=== PATIENT | female | born 1950 | race Caucasian/White ===

== ENCOUNTER 2017-07-15 09:21 | Outpatient (CLI) | payer MEDICARE | END 2017-07-15 09:22 | disposition home or self-care (01) | LOC: BICMAMMO 09:21 | PROVIDERS: ATTEND Internal Medicine | DX: Z12.31 Encounter for screening mammogram for malignant neoplasm of breast (principal); R92.1 Mammographic calcification found on diagnostic imaging of breast; Z80.3 Family history of malignant neoplasm of breast | CPT/HCPCS: 77063; 77067 ==

== ENCOUNTER 2018-07-19 10:20 | Outpatient (CLI) | payer MEDICARE, OTHER ==
--- NOTE | 2018-07-19 11:09 | MMO ---
Bilateral MAMMO Bilat Screen [facility]. CLINICAL HISTORY: Patient is 68 years old and is seen for screening. The patient has the following family history of breast cancer: maternal grandmother, malignant (generic) and maternal grandmother, malignant (generic), GREAT. The patient has no personal history of cancer. The patient has a history of bilateral Implants in 1990. VIEWS: The views performed were: bilateral craniocaudal with tomosynthesis; bilateral mediolateral oblique with tomosynthesis; and bilateral Implant displaced. FILMS COMPARED: The present examination has been compared to prior imaging studies performed at [facility] on 04/25/2015, 07/09/2016 and 07/15/2017, and at [facility] on 10/03/2012. MAMMOGRAM FINDINGS: There are scattered fibroglandular densities. Finding 1: There are stable benign appearing calcifications seen in both breasts. Finding 2: There are stable calcified implants seen in both breasts. There are no suspicious masses, suspicious calcifications, or new areas of architectural distortion. IMPRESSION: THERE IS NO MAMMOGRAPHIC EVIDENCE OF MALIGNANCY. A ROUTINE FOLLOW-UP MAMMOGRAM IN 1 YEAR IS RECOMMENDED. THE RESULTS OF THIS EXAM WERE SENT TO THE PATIENT. ACR BI-RADS Category 2 - Benign finding MAMMOGRAPHY NOTE: 1. A negative mammogram report should not delay a biopsy if a dominant of clinically suspicious mass is present. 2. Approximately 10% to 15% of breast cancers are not detected by mammography. 3. Adenosis and dense breasts may obscure an underlying neoplasm.
== END 2018-07-19 10:21 | disposition home or self-care (01) ==
LOC: BICMAMMO 10:20
PROVIDERS: ATTEND Internal Medicine
DX: Z12.31 Encounter for screening mammogram for malignant neoplasm of breast (principal); Z98.82 Breast implant status
CPT/HCPCS: 77063; 77067

== ENCOUNTER 2019-07-30 13:21 | Outpatient (CLI) | payer MEDICARE, OTHER ==
--- NOTE | 2019-07-30 14:13 | MMO ---
Bilateral MAMMO Bilat Screen [facility]. CLINICAL HISTORY: Patient is 69 years old and is seen for screening. The patient has the following family history of breast cancer: maternal grandmother, malignant (generic) and maternal grandmother, malignant (generic), GREAT. The patient has no personal history of cancer. The patient has a history of bilateral Implants in 1990. VIEWS: The views performed were: bilateral craniocaudal with tomosynthesis and bilateral mediolateral oblique with tomosynthesis. FILMS COMPARED: The present examination has been compared to prior imaging studies performed at [facility] on 04/25/2015, 07/09/2016, 07/15/2017 and 07/19/2018. This study has been interpreted with the assistance of computer-aided detection. MAMMOGRAM FINDINGS: There are scattered fibroglandular densities. Benign calcifications are noted bilaterally. Bilateral implants are stable. There are no suspicious masses, suspicious calcifications, or new areas of architectural distortion. IMPRESSION: THERE IS NO MAMMOGRAPHIC EVIDENCE OF MALIGNANCY. A ROUTINE FOLLOW-UP MAMMOGRAM IN 1 YEAR IS RECOMMENDED. THE RESULTS OF THIS EXAM WERE SENT TO THE PATIENT. ACR BI-RADS Category 2 - Benign finding MAMMOGRAPHY NOTE: 1. A negative mammogram report should not delay a biopsy if a dominant of clinically suspicious mass is present. 2. Approximately 10% to 15% of breast cancers are not detected by mammography. 3. Adenosis and dense breasts may obscure an underlying neoplasm. Reported by: TAMMIE RITCHIE MD Electonically Signed: [id number]
== END 2019-07-30 13:22 | disposition home or self-care (01) ==
LOC: BICMAMMO 13:21
PROVIDERS: ATTEND Internal Medicine
DX: Z12.31 Encounter for screening mammogram for malignant neoplasm of breast (principal); Z98.82 Breast implant status; Z80.3 Family history of malignant neoplasm of breast
CPT/HCPCS: 77063; 77067

== ENCOUNTER 2019-10-03 09:02 | Emergency (ER) | payer MEDICARE ==
[2019-10-03 09:33] LABS: #Eosinphils 0.1 thou/uL (0.0-0.7); #Monocytes 0.8 thou/uL (0.11-0.59); #Neutrophils 8.9 thou/uL (1.40-6.50); %Basophils 0.3 % (0.0-1.0); %Eosinophils 1.2 % (0.0-10.0); %Lymphocytes 17.2 % (21.0-51.0); %Monocytes 6.3 % (0.0-10.0); %Neutrophils 75.1 % (42.0-75.0); Hemoglobin 14.8 g/dL (12.0-16.0); Mean Corpuscular HGB CONC 33.4 g/dL (32.0-36.0); Mean Corpuscular Hemoglobin 30.8 pg (27.0-31.0); Mean Corpuscular Volume 92.1 fL (78.0-98.0); Mean Platelet Volume 7.7 fL (7.4-10.4); Platelet Count 179 thou/uL (130-400); RBC Distribution Width 11.7 % (11.5-14.5); Red Blood Cell (RBC) Count 4.81 mill/uL (4.20-5.40); White Blood Cell (WBC) Count 11.8 thou/uL (4.8-10.8)
[2019-10-03 09:35] LABS: INR-International Normal Ratio 0.9; PTT 25.5 sec (22.9-36.1); Prothrombin Time 12.5 sec (12.0-14.7)
[2019-10-03] MEDS ORDERED: CEFAZOLIN 1 GM VIAL ONE (09:40)
[2019-10-03] MEDS ORDERED: Adacel (T-DAP) 0.5 ML SYRINGE ONE (09:41)
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
[2019-10-03 10:22] LABS: ALT (SGPT) 24 U/L (8-55); AST (SGOT) 23 U/L (5-34); Albumin 3.9 g/dL (3.4-4.8); Alkaline Phosphatase 79 U/L (40-110); Anion Gap 12 mmol/L (10-20); BUN (Urea Nitrogen) 18 mg/dL (9.8-20.1); Bilirubin, Total 0.5 mg/dL (0.2-1.2); Calc. Creatinine Clearance 0 mL/min (70-130); Calcium 9.1 mg/dL (7.8-10.44); Carbon Dioxide 24 mmol/L (23-31); Chloride 108 mmol/L (98-107); Estimated GFR-MDRD 64; Globulin 2.6 g/dL (2.4-3.5); Glucose 102 mg/dL (80-115); Potassium 4.1 mmol/L (3.5-5.1); Protein, Total 6.5 g/dL (6.0-8.3); Sodium 140 mmol/L (136-145)
[2019-10-03] MEDS ORDERED: Ketorolac Tromethamine 30 MG/ML VIAL ONE (10:25)
[2019-10-03] MEDS ORDERED: Lidocaine 1% w/Epinephrine 1:100K 20 ML VIAL ONE (10:26)
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
[2019-10-03] MEDS ORDERED: Bacitracin 1 PK ONE (10:52)
[2019-10-03 14:14] LABS: Bilirubin Negative (Negative); Blood, Urine Negative (Negative); Clarity Clear (Clear); Glucose, Urine (Dipstick) Normal (Negative); Ketone, Urine Negative (Negative); Leukocyte Negative Leu/uL (Negative); Nitrite Negative (Negative); Protein, Urine (Dipstick) Negative (Neg-Trace); Specific Gravity, Urine 1.023 (1.002-1.036); Urobilinogen Normal mg/dL (Less than 2); pH, Urine 7.5 (5.0-9.0)
[2019-10-03] MEDS ORDERED: Iopamidol-370 76% 500 ML 1 ML ONE (15:14)
== END 2019-10-03 11:50 | disposition home or self-care (01) ==
LOC: ERS 09:02
DX: S50.312A Abrasion of left elbow, initial encounter (principal); S60.512A Abrasion of left hand, initial encounter; S90.811A Abrasion, right foot, initial encounter; S20.311A Abrasion of right front wall of thorax, initial encounter; Z79.899 Other long term (current) drug therapy; V49.9XXA Car occupant (driver) (passenger) injured in unspecified traffic accident, initial encounter
CPT/HCPCS: 70450; 71260; 72125; 74177; 80053; 81003; 85025; 85610; 85730; 90471; 90715; 93005; 96365; G0390; J0690; J1885; Q9967

== ENCOUNTER 2020-02-11 12:32 | Observation (INO) | payer MEDICARE ==
[2020-02-11 13:11] LABS: Bilirubin Negative (Negative); Blood, Urine Negative (Negative); Clarity Clear (Clear); Glucose, Urine (Dipstick) Normal (Negative); Ketone, Urine Negative (Negative); Leukocyte Negative Leu/uL (Negative); Nitrite Negative (Negative); Protein, Urine (Dipstick) Negative (Neg-Trace); Specific Gravity, Urine 1.004 (1.002-1.036); Urobilinogen Normal mg/dL (Less than 2); pH, Urine 6.5 (5.0-9.0)
[2020-02-11 13:26] LABS: #Basophils 0.1 thou/uL (0.0-0.2); #Eosinphils 0.1 thou/uL (0.0-0.7); #Lymphocytes 1.9 thou/uL (1.20-3.40); #Monocytes 0.8 thou/uL (0.11-0.59); #Neutrophils 9.5 thou/uL (1.40-6.50); %Basophils 0.5 % (0.0-1.0); %Eosinophils 0.4 % (0.0-10.0); %Lymphocytes 15.6 % (21.0-51.0); %Monocytes 6.6 % (0.0-10.0); %Neutrophils 76.9 % (42.0-75.0); Hemoglobin 14.8 g/dL (12.0-16.0); Mean Corpuscular HGB CONC 33.2 g/dL (32.0-36.0); Mean Corpuscular Hemoglobin 29.7 pg (27.0-31.0); Mean Corpuscular Volume 89.5 fL (78.0-98.0); Mean Platelet Volume 7.5 fL (7.4-10.4); Platelet Count 225 thou/uL (130-400); White Blood Cell (WBC) Count 12.4 thou/uL (4.8-10.8)
[2020-02-11 13:40] LABS: ALT (SGPT) 33 U/L (8-55); AST (SGOT) 27 U/L (5-34); Albumin 4.1 g/dL (3.4-4.8); Alkaline Phosphatase 89 U/L (40-110); Anion Gap 14 mmol/L (10-20); BUN (Urea Nitrogen) 17 mg/dL (9.8-20.1); Bilirubin, Total 0.4 mg/dL (0.2-1.2); Calc. Creatinine Clearance 0 mL/min (70-130); Calcium 9.6 mg/dL (7.8-10.44); Carbon Dioxide 24 mmol/L (23-31); Chloride 107 mmol/L (98-107); Globulin 2.9 g/dL (2.4-3.5); Glucose 95 mg/dL (80-115); Lipase 29 U/L (8-78); Potassium 4.2 mmol/L (3.5-5.1); Sodium 141 mmol/L (136-145)
--- NOTE | 2020-02-11 13:56 | RAD ---
EXAM: CHEST ONE VIEW HISTORY: Dizziness, shortness of breath, chest tightness. COMPARISON: 09/14/2013 FINDINGS: The cardiac silhouette and pulmonary vasculature are within normal limits. The lungs are clear. Calci fied bilateral breast prostheses are again seen. Vascular calcifications are seen in the thoracic aorta. Postoperative changes right shoulder are seen. No other interval change. IMPRESSION: No acute cardiopulmonary process.
--- NOTE | 2020-02-11 14:15 | CT ---
CT BRAIN WITHOUT CONTRAST: HISTORY: Dizziness COMPARISON: 10/03/2019 FINDINGS: No evidence of acute infarct, hemorrhage, midline shift or abnormal extra-axial fluid collections is seen. The ventricular size is appropriate and the basilar cisterns are patent. The bony calvarium is intact. The visualized paranasal sinuses and mastoid air cells are well aerated. IMPRESSION: No CT evidence of acute intracranial process.
[2020-02-11] MEDS ORDERED: Acetaminophen 650 MG Suppository PR PRN (17:44)
[2020-02-11] MEDS ORDERED: Acetaminophen 325 MG TAB PO PRN (17:44)
[2020-02-11 18:23] LABS: CKMB 1.1 ng/mL (0-6.6); Troponin I Less than 0.010 ng/mL (< 0.028)
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
[2020-02-11] MEDS ORDERED: Famotidine 20 MG TAB ONE (22:09)
[2020-02-11] MEDS: Famotidine 20 MG TAB PO SCH (22:13)
[2020-02-12] MEDS: Levothyroxine Sodium 50 MCG TAB PO SCH (06:25)
[2020-02-12 06:36] LABS: #Eosinphils 0.1 thou/uL (0.0-0.7); #Lymphocytes 2.4 thou/uL (1.20-3.40); #Monocytes 0.7 thou/uL (0.11-0.59); #Neutrophils 6.2 thou/uL (1.40-6.50); %Basophils 0.2 % (0.0-1.0); %Eosinophils 1.3 % (0.0-10.0); %Lymphocytes 25.4 % (21.0-51.0); %Monocytes 7.8 % (0.0-10.0); %Neutrophils 65.4 % (42.0-75.0); Hemoglobin 13.9 g/dL (12.0-16.0); Mean Corpuscular HGB CONC 33.5 g/dL (32.0-36.0); Mean Corpuscular Hemoglobin 30.5 pg (27.0-31.0); Mean Platelet Volume 7.6 fL (7.4-10.4); Platelet Count 210 thou/uL (130-400); Red Blood Cell (RBC) Count 4.57 mill/uL (4.20-5.40); White Blood Cell (WBC) Count 9.5 thou/uL (4.8-10.8)
[2020-02-12 06:59] LABS: Anion Gap 14 mmol/L (10-20); BUN (Urea Nitrogen) 20 mg/dL (9.8-20.1); Calc. Creatinine Clearance 0 mL/min (70-130); Carbon Dioxide 25 mmol/L (23-31); Chloride 109 mmol/L (98-107); Glucose 84 mg/dL (80-115); Potassium 4.2 mmol/L (3.5-5.1); Sodium 144 mmol/L (136-145)
[2020-02-12] MEDS ORDERED: Enoxaparin Sodium 40 MG/0.4 ML SYRINGE ONE (09:48)
[2020-02-12] MEDS ORDERED: Famotidine 20 MG TAB ONE (09:48)
[2020-02-12] MEDS: Famotidine 20 MG TAB PO SCH ×2 (09:51→20:31)
[2020-02-12] MEDS: Enoxaparin Sodium 40 MG/0.4 ML SYRINGE SC SCH (09:51)
[2020-02-12 12:26] LABS: SARS-CoV-2 MS2 Positive; SARS-CoV-2 N Gene Negative; SARS-CoV-2 S Gene Negative; SARS-CoV-2 by NAA Not Detected (NotDetected); SARS-CoV-2 orf1ab Negative
[2020-02-12 13:22] VITALS: BMI 29.6
[2020-02-12] MEDS ORDERED: Amlodipine 5 MG TAB PO SCH (14:30)
--- NOTE | 2020-02-12 16:46 | PDOC.HOSPP ---
- Subjective Encounter Date: 02/12/20 Subjective: Feeling a little better in general. She was watching her monitor in the emergency department and noted that she was having PVCs with 3 different foci. She believes that she was actually having several in a row which were significant enough to cause her to have momentary lightheadedness before coming to the hospital. She reports that she has seen Dr. Schwarz in 2013. At that time she underwent cardiac evaluation including stress test. She was subsequently started on bisoprolol. She says her blood pressure is typically not been a serious problem but was elevated associated with this particular episode. [place] worried about what will happen if her symptoms recur. - Objective Vital Signs & Weight: Vital Signs (12 hours) Temp Pulse Resp BP BP BP Pulse Ox 02/12/20 15:05 98.1 F 64 16 138/60 94 L 02/12/20 14:26 65 157/67 H 02/12/20 13:05 97.9 F 61 17 166/74 H 99 Weight Weight 178 lb Result Diagrams: 02/12/20 06:19 02/12/20 06:18 Hospitalist ROS - Medication Medications: Active Medications Generic Name Dose Route Start Last Admin Trade Name Freq PRN Reason Stop Dose Admin Enoxaparin Sodium 40 mg 02/12/20 09:00 02/12/20 09:51 Enoxaparin Sodium 40 Mg/0.4 Ml Syringe SC 40 mg 0900 PHYLLIS Administration Famotidine 20 mg 02/11/20 21:00 02/12/20 09:51 Famotidine 20 Mg Tab PO Not Given BID PHYLLIS Levothyroxine Sodium 50 mcg 02/12/20 06:00 02/12/20 06:25 Levothyroxine Sodium 50 Mcg Tab PO 50 mcg 0600 PHYLLIS Administration - Exam General Appearance: NAD, awake alert Heart: RRR, no murmur, no gallops, no rubs, normal peripheral pulses Respiratory: CTAB, no wheezes, no rales, no ronchi, normal chest expansion, no tachypnea, normal percussion Gastrointestinal: soft, non-tender, non-distended, normal bowel sounds, no palpable masses, no hepatomegaly, no splenomegaly, no bruit Extremities: no cyanosis, no clubbing, no edema Skin: normal turgor, no lesions, no rashes Neurological: no focal deficits Musculoskeletal: normal tone, normal strength, no muscle wasting Psychiatric: normal affect, normal behavior, A&O x 3 Hosp A/P (1) Elevated BP without diagnosis of hypertension Code(s): R03.0 - ELEVATED BLOOD-PRESSURE READING, W/O DIAGNOSIS OF HTN Status: Acute (2) Heart palpitations Code(s): R00.2 - PALPITATIONS Status: Acute (3) Lightheadedness Code(s): R42 - DIZZINESS AND GIDDINESS Status: Acute (4) Hx of labyrinthitis Code(s): Z86.69 - PERSONAL HISTORY OF DIS OF THE NERVOUS SYS AND SENSE ORGANS Status: Chronic (5) Hypothyroidism Code(s): E03.9 - HYPOTHYROIDISM, UNSPECIFIED Status: Chronic - Plan Thus far the patient's evaluation has essentially been unremarkable. Her labs are normal including her troponins. She has not had any major findings on her telemetry monitoring although she has been in the emergency department in little of this is been captured for the chart. Echocardiogram was ordered however delayed because the patient was holding over in the emergency department. I long discussion with the patient. At this point we will move forward with the echocardiogram and order stress testing. Should these be unremarkable she can discharge and follow-up with Dr. Schwarz to consider possible outpatient cardiac monitoring.
[2020-02-13] MEDS: Levothyroxine Sodium 50 MCG TAB PO SCH (05:46)
[2020-02-13] MEDS: Enoxaparin Sodium 40 MG/0.4 ML SYRINGE SC SCH (11:01)
[2020-02-13] MEDS: Famotidine 20 MG TAB PO SCH (11:01)
[2020-02-13 12:12] VITALS: BP 137/63; TEMP 98.1
--- NOTE | 2020-02-13 12:18 | NM ---
CARDIAC SPECT: CLINICAL HISTORY: 69-year-old female with chest pain, palpitations. TECHNIQUE: A myocardial perfusion scan was performed using the single isotope one day protocol with technetium-9 9m sestamibi. 10 mCi were injected intravenously for the rest exam followed by 32 mCi for the stress exam. Exercise stress was monitored and interpreted by Dr. Doran. FINDINGS: Homogeneous tracer distribution is seen in the myocardial segments on stress and rest images without fixed or reversible defects. GATED SPECT LVEF: 83%. WALL MOTION EXAM: Normal. IMPRESSION: Normal myocardial perfusion scan. POS: AH
--- NOTE | 2020-02-13 22:21 | PDOC.DS.DS ---
Provider - Provider Date of Admission: 02/11/20 16:13 Date of Discharge: 02/13/20 Admitting Provider: Ugo Brooks DO Consultations: None Primary Care Physician: Israel Owen MD Course - Hospital Course Hospital Course: Patient is a 69-year-old female with hypothyroidism and coronary artery spasms in the past presented to the emergency room with lightheadedness along with palpitations. Please refer to the history and physical for further details The patient was admitted to the hospital with the above diagnosis. She was monitored on telemetry. Chest x-ray was negative for acute process. CT scan of the brain without contrast was negative. Telemetry monitoring was negative for significant arrhythmias. A D-dimer was negative. Bisoprolol was continued. She underwent Cardiolite stress test that was negative for reversible ischemia. Echocardiogram showed ejection fraction 60 to 65% with mild mitral regurgitation and mild tricuspid regurgitation. Patient will follow up with Dr. Schwarz later today for an event monitor. Final diagnosis: Palpitations with lightheadedness of unclear etiology PVCs Elevated blood pressure without diagnosis of hypertension Hypothyroidism History of labyrinthitis CKD stage II Resuscitation Status: 02/11/20 17:44 Resuscitation Status Routine Co-Sign Provider: Resuscitation Status: FULL: Full Resuscitation - Labs Lab Results: 02/12/20 06:19 02/12/20 06:18 Abnormal Lab Results - Last 48 hrs 02/12/20 06:18: Chloride 109 H 02/12/20 06:19: Monocytes # 0.7 H - Physical Exam Vitals: Vital Signs (12 hours) Temp Pulse Resp BP Pulse Ox 02/13/20 12:00 98.1 F 62 16 137/63 94 L Weight Weight 175 lb 6.4 oz Physical Exam: The patient was seen and examined on the day of discharge. Plan - Discharge Medications Prescriptions: Amlodipine Besylate [amLODIPine Besylate] 2.5 mg PO DAILY PRN #20 tablet PRN Reason: Sbp Greater Than 160 Home Medications: Medication Instructions Recorded Confirmed Type Azelastine [Azelastine 137 mcg 1 spray NASAL DAILY PRN 02/12/20 02/12/20 History (0.1%) Nasal [place]] Bisoprolol Fumarate [Zebeta] 5 mg PO DAILY 02/12/20 02/12/20 History Levothyroxine Sodium 50 mcg PO DAILY 12/15/20 12/15/20 History [Levothyroxine] valACYclovir HCl [Valacyclovir] 500 mg PO BID PRN 02/12/20 02/12/20 History Amlodipine Besylate [amLODIPine 2.5 mg PO DAILY PRN #20 tablet 02/13/20 Rx Besylate] Allergies: codeine Allergy (Verified 02/12/20 13:14) - Follow up Plan Referrals: Robinson Schwarz MD [Affiliate] - 02/13/20 4:00 pm (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
--- NOTE | 2020-02-16 15:21 | EKG ---
Test Reason : Blood Pressure : / mmHG Vent. Rate : 061 BPM Atrial Rate : 061 BPM P-R Int : 146 ms QRS Dur : 092 ms QT Int : 414 ms P-R-T Axes : 060 033 021 degrees QTc Int : 416 ms Normal sinus rhythm Cannot rule out Anterior infarct , age undetermined Abnormal ECG Confirmed by REJI MONTANA DO ([id number]), editor continuity and script JESSE BRAGA ([id number]) on 02/16/2020 3:20:34 PM Referred By: Confirmed By:REJI MONTANA DO
== END 2020-02-13 14:53 | disposition home or self-care (01) ==
LOC: ERS 12:32 → ERHOLD 16:13 → 2NO 02-12 13:00
PROVIDERS: ADMIT Family Medicine; ATTEND Internal Medicine
DX: R00.2 Palpitations (principal); R42 Dizziness and giddiness; E03.9 Hypothyroidism, unspecified; R03.0 Elevated blood-pressure reading, without diagnosis of hypertension; I49.3 Ventricular premature depolarization; N18.2 Chronic kidney disease, stage 2 (mild); Z79.899 Other long term (current) drug therapy; Z88.5 Allergy status to narcotic agent; Z86.69 Personal history of other diseases of the nervous system and sense organs; Z20.828 Contact with and (suspected) exposure to other viral communicable diseases
CPT/HCPCS: 70450; 71045; 78452; 80048; 80053; 81003; 82553; 83690; 83735; 83880; 84443; 84484 ×3; 85025 ×2; 85379; 93005; 93017; 93306; 96372 ×2; 99285; A9500; G0378 ×4; U0003; 36415; 87635; J1650

== ENCOUNTER 2020-08-26 13:58 | Outpatient (CLI) | payer MEDICARE | END 2020-08-26 13:59 | disposition home or self-care (01) | LOC: BICMAMMO 13:58 | PROVIDERS: ATTEND Internal Medicine | DX: Z12.31 Encounter for screening mammogram for malignant neoplasm of breast (principal); Z80.3 Family history of malignant neoplasm of breast; Z98.82 Breast implant status | CPT/HCPCS: 77063; 77067 ==

== ENCOUNTER 2021-09-09 12:32 | Outpatient (CLI) | payer MEDICARE | END 2021-09-09 12:33 | disposition home or self-care (01) | LOC: BICMAMMO 12:32 | PROVIDERS: ATTEND Internal Medicine | DX: Z12.31 Encounter for screening mammogram for malignant neoplasm of breast (principal); Z80.3 Family history of malignant neoplasm of breast; Z98.82 Breast implant status | CPT/HCPCS: 77063; 77067 ==

== ENCOUNTER 2022-11-02 10:46 | Outpatient (CLI) | payer MEDICARE | END 2022-11-02 10:47 | disposition home or self-care (01) | LOC: BICMAMMO 10:46 | PROVIDERS: ATTEND Internal Medicine | DX: Z12.31 Encounter for screening mammogram for malignant neoplasm of breast (principal); M81.0 Age-related osteoporosis without current pathological fracture; M85.89 Other specified disorders of bone density and structure, multiple sites; Z80.3 Family history of malignant neoplasm of breast; Z98.82 Breast implant status | CPT/HCPCS: 77063; 77067; 77080 ==

== ENCOUNTER 2024-09-21 09:57 | Outpatient (CLI) | payer MEDICARE | END 2024-09-21 09:58 | disposition home or self-care (01) | LOC: BICMAMMO 09:57 | PROVIDERS: ATTEND Internal Medicine | DX: M81.0 Age-related osteoporosis without current pathological fracture (principal); M85.89 Other specified disorders of bone density and structure, multiple sites; E03.9 Hypothyroidism, unspecified; R79.89 Other specified abnormal findings of blood chemistry; E78.00 Pure hypercholesterolemia, unspecified; I10 Essential (primary) hypertension | CPT/HCPCS: 77080; 80053; 80061; 84443; 85025 ==